=== PATIENT | male | born 1995 | race Caucasian/White ===

== ENCOUNTER 2019-10-24 18:28 | Emergency (ER) | payer OTHER ==
[2019-10-24] MEDS ORDERED: Acetaminophen/HYDROcodone 325-10 MG Tab PO ONE (18:29)
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
[2019-10-24 19:40] LABS: ANION GAP 12.8 mEq/L (7-13); CHLORIDE,CL 106 mmol/L (98-107); SODIUM,NA 143 mmol/L (136-145)
[2019-10-24] MEDS ORDERED: Acetaminophen/HYDROcodone 325-10 MG Tab ONE (22:30)
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
== END 2019-10-24 22:25 | disposition home or self-care (01) ==
LOC: EDBD → DL.ED 18:28
DX: S82.001A Unspecified fracture of right patella, initial encounter for closed fracture (principal); S00.83XA Contusion of other part of head, initial encounter; S00.531A Contusion of lip, initial encounter; S00.12XA Contusion of left eyelid and periocular area, initial encounter; V49.3XXA Car occupant (driver) (passenger) injured in unspecified nontraffic accident, initial encounter
CPT/HCPCS: 36415; 70450; 70486; 72125; 73562; 73700; 80053; 80307; 85025; 99284; A9270